=== PATIENT | female | born 1935 | race American Indian/Alaskan Native ===

== ENCOUNTER 2019-08-01 12:30 | Emergency (ER) | payer OTHER, MEDICAID ==
[2019-08-01 12:59] LABS: Basophils # (auto) 0 uL; Basophils % (auto) 0.4 % (0.0-2.0); Eosinophils # (auto) 0.1 uL; Lymphocytes # (auto) 2.2 uL; Lymphocytes % (auto) 27.8 % (10.0-50.0); Mean Corpuscular Hemoglobin 31.9 pg (28.0-32.0); Mean Corpuscular Hgb Conc. 34.3 g/dL (32.0-36.0); Mean Corpuscular Volume 92.9 fL (80.0-100.0); Monocytes # (auto) 0.9 uL; Neutrophils # (auto) 4.6 uL; Neutrophils % (auto) 58.8 % (37.0-80.0); Nucleated Red Blood Cells % 0.1 %; Platelet Count (auto) 140 10^3/uL (140-450); Red Blood Cells 4.09 10^6/uL (4.0-5.20); Red Cell Distribution Width 15.1 % (11.8-14.3); White Blood Cell 7.8 10^3/uL (4.4-10.8)
[2019-08-01 13:13] LABS: Albumin 2.7 g/dL (3.4-5.0); Calcium 8.6 mg/dL (8.5-10.1); Potassium 3.7 mmol/L (3.5-5.1)
[2019-08-01 13:16] LABS: BUN/Creatinine Ratio 12.5; Bilirubin, Total 0.7 mg/dL (0.2-1.0); Total Protein 7.8 g/dL (6.4-8.2)
[2019-08-01 16:41] VITALS: BP 132/52
== END 2019-08-01 17:03 | disposition home or self-care (01) ==
LOC: ER 12:30
DX: M17.12 Unilateral primary osteoarthritis, left knee (principal); M11.262 Other chondrocalcinosis, left knee; M11.261 Other chondrocalcinosis, right knee; M25.462 Effusion, left knee; M23.42 Loose body in knee, left knee; M23.41 Loose body in knee, right knee; E44.0 Moderate protein-calorie malnutrition; I10 Essential (primary) hypertension
CPT/HCPCS: 36415; 73700; 80053; 85025

== ENCOUNTER 2021-12-25 15:15 | Emergency (ER) | payer OTHER, MEDICAID ==
[~2021-12-25] VITALS: Ht 152.4 cm; Wt 81.6 kg
[2021-12-25] MEDS ORDERED: IBU600T PO (16:46)
[2021-12-25] MEDS ORDERED: HYDROcodone-ACET 5/325MG TAB PO ONE (17:30)
[2021-12-25 18:36] VITALS: BP 184/54
== END 2021-12-25 18:54 | disposition home or self-care (01) ==
LOC: ER 15:15
DX: M16.11 Unilateral primary osteoarthritis, right hip (principal); I10 Essential (primary) hypertension; Z79.1 Long term (current) use of non-steroidal anti-inflammatories (NSAID)
CPT/HCPCS: 72192; 73502; 73562